=== PATIENT | male | born 1950 | race Caucasian/White ===

== ENCOUNTER → 2018-10-03 | Outpatient (CLI) | payer MEDICARE, OTHER ==
[~2018-10-03] MED LIST: ASPI-715 PO; ASPI81TA94 PO; ATR80PT PO; DIPH0.5D12 IM; GLUC100026 PO; LISI5TAB25 PO; LOR10 PO; METO25TA23 PO; NIAC500C12 PO; PANT40TA65 PO; SIL50 PO; TICA90TA PO; TRIA15CR40 TP; VARI50KI IM
== END ==
LOC: US 01:24
PROVIDERS: ATTEND Internal Medicine Cardiovascular Disease
DX: I25.10 Atherosclerotic heart disease of native coronary artery without angina pectoris (principal)
CPT/HCPCS: 93306

== ENCOUNTER 2019-01-05 22:53 | Emergency (ER) | payer MEDICARE, OTHER ==
--- NOTE | 2019-01-05 22:54 | ER Report ---
History and Physical Time Seen By MD: 22:54 HPI/ROS CHIEF COMPLAINT: Chest pain 2 days HISTORY OF PRESENT ILLNESS: 68-year-old male with a history of coronary artery disease, status post STEMI 2 years ago and was given from [facility] and flown to [facility] where he had 1 stent placed. Patient now with 2 days of chest discomfort. He thinks he suffering a flu or cold symptoms. The pain in his chest as a dull ache. He notes no exertional component with it. He notes no diaphoresis, but notes some nausea. Patient notes mild shortness of breath. Patient states he is currently being followed Dr. Scanlon cardiology, who saw him one month ago. 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 REVIEW OF SYSTEMS: Respiratory: As above Cardiovascular: As above Gastrointestinal: No vomiting, no abdominal pain. Musculoskeletal: No back pain. Allergies: Uncoded Allergies: ANIMAL DANDER (Allergy, Mild, 06/10/07) HAYFEVER (Allergy, Unknown, 04/03/17) Home Meds Active Scripts Sildenafil Citrate (VIAGRA) 50 Mg Tab, 1 TAB PO DAILY PRN for erectile dysfunction for 30 Days, #6 TAB 6 Refills Prov:KAYLA JEAN MD 12/13/17 Reported Medications Carvedilol (CARVEDILOL) 6.25 Mg Tab, 6.25 MG PO BID, TAB 01/05/19 Lisinopril (LISINOPRIL) 5 Mg Tablet, 1 TAB PO DAILY 03/29/18 Atorvastatin (LIPITOR) 80 Mg Tab, 1 TAB PO QDAY, TAB 01/11/18 Aspirin (ASPIRIN) 81 Mg Tab.chew, 1 TAB PO QDAY, TAB.CHEW 01/11/18 Discontinued Reported Medications Pantoprazole Sodium (PANTOPRAZOLE SODIUM) 40 Mg Tablet.dr, 1 TAB PO QDAY, TAB.SR 01/11/18 Metoprolol Succinate (METOPROLOL SUCCINATE) 25 Mg Tab.er.24h, 1 TAB PO QDAY, TAB 01/11/18 Discontinued Scripts Varicella-Zoster Ge/As01b/Pf (Shingrix Vial Kit) 50 Mcg/0.5 Ml Kit, 0.5 ML IM ONCE, #1 EACH 1 Refill Prov:JUSTINA CASTILLO APRN [employer] 03/29/18 Triamcinolone Acetonide 0.1% Cr 15 Gm Tube (TRIAMCINOLONE ACETONIDE 0.1% CREAM) 15 Gm Cream..g., 1 DEREK TP BID PRN for RASH, #1 TUBE 1 Refill Prov:PENNY CLOUD DNP, [employer] 02/27/18 Past Medical/Surgical History Past Medical History Cardiovascular: Reports hx of: myocardial infarction (04/03/2017) other CV history (THROMBOPHLEBITIS OF LEG. 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) Infectious disease: Reports hx of: hepatitis (1954) Past Surgical History HEENT: Reports hx of: tonsillectomy (T&A 1952) Gastrointestinal: Reports hx of: other GI surgery (COLONOSCOPY DONE 2011 DUE 2021) Reviewed Nurses Notes: Yes Old Medical Records Reviewed: Yes Smoking Status: Never Smoker Constitutional Vital Sign - Last 24 Hours 01/05/19 01/05/19 01/05/19 01/05/19 22:56 23:00 23:04 23:23 Temp 97.4 Pulse 92 75 Resp 18 B/P (MAP) 123/78 (93) Pulse Ox 79 96 O2 Delivery Room Air O2 Flow Rate 3.0 01/05/19 01/05/19 01/06/19 01/06/19 23:30 23:53 00:00 00:30 Pulse 57 73 Resp 29 30 B/P (MAP) 117/69 (85) 92/74 (80) Pulse Ox 92 92 01/06/19 01/06/19 01/06/19 01/06/19 00:30 01:00 01:05 01:30 Pulse 73 40 Resp 30 25 B/P (MAP) 122/91 (101) 115/83 (94) 101/74 (83) Pulse Ox 92 92 90 01/06/19 01/06/19 01/06/19 01/06/19 01:35 02:00 02:05 02:30 Pulse 76 67 Resp 11 15 B/P (MAP) 107/74 (85) 98/71 (80) Pulse Ox 91 92 01/06/19 01/06/19 01/06/19 01/06/19 02:35 02:40 02:55 03:00 Pulse 55 64 66 Resp 25 20 B/P (MAP) 102/78 (86) Pulse Ox 91 91 01/06/19 01/06/19 01/06/19 01/06/19 03:10 03:25 03:30 03:40 Pulse 66 65 59 Resp 18 20 8 B/P (MAP) 114/85 (95) Pulse Ox 94 93 93 Physical Exam General Appearance: The patient is alert, has no immediate need for airway protection and no current signs of toxicity. Vital signs stable, afebrile, pulse ox normal HEENT: Pupils equal and round no injection. TMs normal, oropharynx without redness or exudate, mucous. Membranes are moist Respiratory: Chest is non tender, lungs are clear to auscultation. No chest wall tenderness Cardiac: regular rate and rhythm, no murmur Gastrointestinal: Abdomen is soft and non tender, no masses, bowel sounds normal. Musculoskeletal: Neck: Neck is supple and non tender. Extremities have full range of motion and are non tender. No edema Skin: No rashes or lesions. DIFFERENTIAL DIAGNOSIS: After history and physical exam differential diagnosis was considered for chest pain including but not limited to myocardial ischemia, pericarditis pulmonary embolus, chest wall pain, pleural inflammation and pulmonary infectious causes. Medical Decision Making Data Points Result Diagram: 01/05/19230301/05/192303 Laboratory Hematology Test 01/05/19 23:04 01/05/19 23:34 01/06/19 03:09 Red Blood Count 4.59 M/uL (4.00-5.60) Mean Corpuscular Volume 96.5 fL (80.0-96.0) Mean Corpuscular Hemoglobin 33.3 pg (26.0-33.0) Mean Corpuscular Hemoglobin Concent 34.5 g/dL (32.0-36.0) Red Cell Distribution Width 14.4 % (11.5-14.5) Mean Platelet Volume 8.4 fL (7.2-11.1) Neutrophils (%) (Auto) 73.7 % (39.4-72.5) Lymphocytes (%) (Auto) 18.2 % (17.6-49.6) Monocytes (%) (Auto) 7.5 % (4.1-12.4) Eosinophils (%) (Auto) 0.3 % (0.4-6.7) Basophils (%) (Auto) 0.3 % (0.3-1.4) Nucleated RBC Relative Count (auto) 0.1 /100WBC Neutrophils # (Auto) 4.2 K/uL (2.0-7.4) Lymphocytes # (Auto) 1.0 K/uL (1.3-3.6) Monocytes # (Auto) 0.4 K/uL (0.3-1.0) Eosinophils # (Auto) 0.0 K/uL (0.0-0.5) Basophils # (Auto) 0.0 K/uL (0.0-0.1) Nucleated RBC Absolute Count (auto) 0.01 K/uL Sodium Level 139 mmol/L (137-145) Potassium Level 3.7 mmol/L (3.5-5.0) Chloride Level 106 mmol/L (98-107) Carbon Dioxide Level 24 mmol/L (22-30) Blood Urea Nitrogen 19 mg/dl (9-21) Creatinine 1.00 mg/dl (0.66-1.25) Glomerular Filtration Rate Calc > 60.0 Random Glucose 150 mg/dl (75-110) Calcium Level 9.2 mg/dl (8.4-10.2) Total Bilirubin 1.9 mg/dl (0.2-1.3) Aspartate Amino Transf (AST/SGOT) 33 U/L (0-35) Alanine Aminotransferase (ALT/SGPT) 37 U/L (0-56) Alkaline Phosphatase 69 U/L (0-126) B-Type Natriuretic Peptide 354 pg/ml (0-100) Total Protein 7.3 g/dl (6.3-8.2) Albumin 4.3 g/dl (3.5-5.0) Influenza Virus Type A (PCR) Negative (NEGATIVE) Influenza Virus Type B (PCR) Negative (NEGATIVE) Troponin I 0.024 ng/ml Chemistry Test 01/05/19 23:04 01/05/19 23:34 01/06/19 03:09 White Blood Count 5.7 k/uL (4.5-11.0) Red Blood Count 4.59 M/uL (4.00-5.60) Hemoglobin 15.3 g/dL (14.0-18.0) Hematocrit 44.3 % (42.0-52.0) Mean Corpuscular Volume 96.5 fL (80.0-96.0) Mean Corpuscular Hemoglobin 33.3 pg (26.0-33.0) Mean Corpuscular Hemoglobin Concent 34.5 g/dL (32.0-36.0) Red Cell Distribution Width 14.4 % (11.5-14.5) Platelet Count 123 K/uL (150-450) Mean Platelet Volume 8.4 fL (7.2-11.1) Neutrophils (%) (Auto) 73.7 % (39.4-72.5) Lymphocytes (%) (Auto) 18.2 % (17.6-49.6) Monocytes (%) (Auto) 7.5 % (4.1-12.4) Eosinophils (%) (Auto) 0.3 % (0.4-6.7) Basophils (%) (Auto) 0.3 % (0.3-1.4) Nucleated RBC Relative Count (auto) 0.1 /100WBC Neutrophils # (Auto) 4.2 K/uL (2.0-7.4) Lymphocytes # (Auto) 1.0 K/uL (1.3-3.6) Monocytes # (Auto) 0.4 K/uL (0.3-1.0) Eosinophils # (Auto) 0.0 K/uL (0.0-0.5) Basophils # (Auto) 0.0 K/uL (0.0-0.1) Nucleated RBC Absolute Count (auto) 0.01 K/uL Glomerular Filtration Rate Calc > 60.0 Calcium Level 9.2 mg/dl (8.4-10.2) Total Bilirubin 1.9 mg/dl (0.2-1.3) Aspartate Amino Transf (AST/SGOT) 33 U/L (0-35) Alanine Aminotransferase (ALT/SGPT) 37 U/L (0-56) Alkaline Phosphatase 69 U/L (0-126) B-Type Natriuretic Peptide 354 pg/ml (0-100) Total Protein 7.3 g/dl (6.3-8.2) Albumin 4.3 g/dl (3.5-5.0) Influenza Virus Type A (PCR) Negative (NEGATIVE) Influenza Virus Type B (PCR) Negative (NEGATIVE) Troponin I 0.024 ng/ml EKG/Imaging EKG Interpretation 12 lead EK Rhythm: normal sinus rhythm with frequent premature ventricular complexes Verbena: normal QRS: Old inferior Q waves, old anterior Q waves ST segments: normal, old EKGs show acute STEMI Imaging X-ray: Single view portable chest x-ray was obtained. I viewed the images myself on the PACS system. My interpretation of the images is: No infiltrate, no effusion, normal mediastinum., Comparison to previous chest x-ray dated 04/03/17. The radiologist interpretation had no clinically significant variation from this interpretation. ED Course/Re-evaluation Clinical Indication for ER IV: IV Access ED Course Patient was admitted to an examination room. H&P was done. The differential di agnoses was considered. Patient's EKG without changes. Patient's offered medication for pain but declines. He feels much better on supplemental O2 and at rest. 1st troponin returned returns mildly elevated in the indeterminate zone at 0.036. A repeat troponin was performed at 4 hours. And has gone down to 0.024. There is no evidence of gross ischemia. Patient's advised to take it easy continue on his regular medications, especially aspirin. He's advised to follow-up with Dr. Scanlon as planned for his nuclear medicine treadmill scheduled for of this next week. 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 On repeat at 4 hours was 0.024 Problem Qualifiers Primary Impression: Chest pain Chest pain type: unspecified Qualified Codes: R07.9 - Chest pain, unspecified NEDA BARRON DO Jan 05, 2019 22:54
[2019-01-05] MEDS ORDERED: ASPIRIN 81 MG CHEW PO ONE (23:00)
[2019-01-05] MEDS ORDERED: CAR6.25 PO (23:06)
[2019-01-05 23:20] LABS: PLATELET COUNT, AUTOMATED 123 K/uL (150-450)
--- NOTE | 2019-01-05 23:55 | RADIOLOGY IMAGING REPORT ---
FACILITY: [facility] [place] PATIENT NAME: Jose Parker : 1950 MR: [id number] V: [id number] EXAM DATE: ORDERING PHYSICIAN: NEDA BARRON TECHNOLOGIST: Location: [facility] [place] Patient: Jose Parker : 1950 Visit/Account:[id number] Date of Sevice: 01/05/2019 PORTABLE CHEST: Indication: Chest pain. Technique: A single frontal film was obtained. Comparison: 04/03/2017 Skeletal and soft tissue structures: Intact and unchanged. Heart and mediastinum: Within normal limits. Lung uhmmel: Well-expanded. There is chronic linear scarring at the right base. No acute parenchymal process is identified. There is no evidence of vascular congestion. Pleural spaces: Unremarkable. Impression: No acute process or significant change. Report Dictated By: Epi Burns MD at 01/05/2019 11:50 PM Report E-Signed By: Epi Burns MD at 01/05/2019 11:52 PM WSN:[id number]
--- NOTE | 2019-01-06 00:36 | EKG ---
FAC[place] [facility] [place] PATIENT NAME: JEAN MARIE PAZ : [id number] MR: [id number] V: [id number] EXAM DATE: ORDERING PHYSICIAN: NEDA BARRON TECHNOLOGIST: HC Test Reason : CP SOB Blood Pressure : / mmHG Vent. Rate : 087 BPM Atrial Rate : 087 BPM P-R Int : 146 ms QRS Dur : 094 ms QT Int : 414 ms P-R-T Axes : 033 -09 035 degrees QTc Int : 498 ms Sinus rhythm with frequent premature ventricular complexes bigeminy Left axis Possible left atrial enlargement Q waves in III and AVF raises question of previous inferior infarct Possible previous anterior infarct ST-T abnormalities through anterior leads Abnormal ECG Confirmed by LOWELL FORTE ([id number]) on 01/06/2019 8:31:19 PM Referred By: ANDERSON Confirmed By:LOWELL FORTE
[2019-01-06 03:30] VITALS: BP 114/85
== END 2019-01-06 04:00 | disposition home or self-care (01) ==
LOC: ER 23:05
DX: R07.9 Chest pain, unspecified (principal); I25.10 Atherosclerotic heart disease of native coronary artery without angina pectoris
CPT/HCPCS: 36415; 71045; 83880; 84484; 85025; 87502; 93005; 99284; A9270; 82040; 82247; 82310; 82374; 82435; 82565; 82947; 84075; 84132; 84155; 84295; 84450; 84460; 84520

== ENCOUNTER → 2019-01-21 | Outpatient (CLI) | payer MEDICARE, OTHER ==
[~2019-01-21] MED LIST changes: +CAR6.25 PO
--- NOTE | 2019-01-21 15:19 | RADIOLOGY IMAGING REPORT ---
FACILITY: [facility] PATIENT NAME: Jose Parker : 1950 MR: [id number] V: [id number] EXAM DATE: ORDERING PHYSICIAN: CARLOS VÁSQUEZ TECHNOLOGIST: Location: [facility] [place] Patient: Jose Parker : 1950 Visit/Account:[id number] Date of Sevice: 01/21/2019 EXAMINATION: Single Isotope SPECT Imaging with Exercise and Gated SPECT Imaging DATE OF EXAMINATION: 01/21/2019 DATE OF INTERPRETATION: 01/21/2019 REQUESTING PHYSICIAN: CARLOS VÁSQUEZ INDICATION: The patient is a 68-year-old male evaluated for chest pain with prior myocardial infarct ion and intracoronary stent. PROCEDURE: After informed consent the patient received an intravenous injection of 12.2 mCi of Tc-9 9m sestamibi followed at the appropriate time interval by rest imaging. The patient then exercised a ccording to the standard Fuentes protocol for 3:36 minutes achieving 5.3 METS. Resting heart rate was 70 bpm with a peak heart rate of 133 bpm which is 92 % of maximal predicted heart rate for age. Blo od pressure at rest was 140 / 103; blood pressure during exercise was 143 / 106. There was no chest pain during exercise. Exercise was discontinued because of leg pain and reached maximum heart rate. Baseline EKG demonstrates sinus rhythm with right axis. Poor R-wave progression across the precordiu m.. There were no EKG changes of ischemia at peak exercise. Approximately one minute and 30 seconds prior to the termination of exercise, the patient received an intravenous injection of 29.1 mCi of T c-99m sestamibi followed by stress imaging. RAW DATA: Examination of the summed raw data revealed a adequate quality study. No significant artif acts. No extracardiac tracer uptake. MYOCARDIAL PERFUSION: The tomographic images demonstrate there is a large sized, moderate intensity fixed defect throughout the anteroseptal wall extending into the apical anterior and cardiac apex. No ischemia. No transient ischemic dilation.. GATED IMAGES: The gated images demonstrate EF 38%. Global hypokinesis with septal dyskinesis. IMPRESSION: 1. Negative treadmill stress ECG for ischemia. Limited functional capacity going 3.5 minutes. 2. Abnormal myocardial perfusion scan with prior proximal LAD infarct. There is no ischemia on today 's study. 3. Abnormal LV systolic function; LVEF 38%. 4. Based on the results of this exam, the patient appears to be at intermediate to high risk for futu re cardiovascular events. Report Dictated By: Osiel Art at 01/21/2019 3:08 PM Report E-Signed By: Osiel Art at 01/21/2019 3:16 PM WSN:[id number]
--- NOTE | 2019-01-22 12:33 | RT STRESS TEST REPORT ---
FACILITY: [facility] PATIENT NAME: JEAN MARIE PAZ : [id number] MR: [id number] V: [id number] EXAM DATE: ORDERING PHYSICIAN: CARLOS VÁSQUEZ TECHNOLOGIST: Laura Acquisition Time: 2019-01-21 09:48:09 Total Exercise Time: 00:03:36 Test Indications: CAD Medications: See Chart Protocol: SMITH 2 Max HR: 133 BPM 87% of Pred: 152 BPM Max BP: 143/106 mmHG Max Work Load: 5.3 METS EKG showed frequent PVCs before and during the test Impression No EKG changes to suggest ischemia Nuclear medicine report to follow Confirmed by FRANCINE DE LA ROSA ([id number]) on 01/22/2019 12:33:40 PM Referred By: Overread By: FRANCINE DE LA ROSA
== END ==
LOC: RESP 01:38
PROVIDERS: ATTEND Internal Medicine Cardiovascular Disease
DX: I49.3 Ventricular premature depolarization (principal)
CPT/HCPCS: 78452; 93017; A9500